=== PATIENT | female | born 1975 | race Caucasian/White ===

== ENCOUNTER → 2018-02-15 | Outpatient (CLI) | payer BC ==
[~2018-02-15] MED LIST: GADOBUTROL 10 ML VIAL IVP ONE
== END ==
LOC: FIMAGING 10:20
PROVIDERS: ATTEND Internal Medicine
DX: N64.59 Other signs and symptoms in breast (principal); Z80.3 Family history of malignant neoplasm of breast
CPT/HCPCS: 0159T; 77059; A9585; C8908

== ENCOUNTER → 2018-03-17 | Outpatient (CLI) | payer BC | LOC: FIMAGING 18:35 | PROVIDERS: ATTEND Psychiatry & Neurology Neurology | DX: G40.909 Epilepsy, unspecified, not intractable, without status epilepticus (principal) ==

== ENCOUNTER → 2018-04-01 | Outpatient (CLI) | payer BC ==
--- NOTE | 2018-04-01 15:14 | CPEEG ---
FOUR-HOUR VIDEO EEG DATE OF STUDY: 04/01/2018 INTERPRETATION: This 4-hour video EEG is abnormal due to the presence of generalized spike and wave discharges. 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 The patient did not have any clinical events during the video EEG monitoring session. REPORT: This 4-hour video EEG contains well-formed 10 Hz alpha activity to the posterior head regions. The primary feature of this recording was the presence of generalized spike and wave discharges. During wakefulness, the discharges were 3-4 Hz in frequency, well-formed and monomorphic. There was additional activation with hyperventilation. There was no additional activation with photic stimulation. As the patient became drowsy and fell into sustained sleep , there was increased activation of generalized spike and wave discharges. During drowsiness and sleep, the discharges became more irregular in terms of morphology, frequency, and the additional presence of generalized polyspike and wave discharges. There were no clinical events recorded during the video EEG monitoring session. /[id number]/MODL MTDD
== END ==
LOC: FCPNEURO 07:45
PROVIDERS: ATTEND Psychiatry & Neurology Neurology
DX: G40.909 Epilepsy, unspecified, not intractable, without status epilepticus (principal)